=== PATIENT | female | born 1975 | race Caucasian/White ===

== ENCOUNTER 2017-12-10 21:17 | Emergency (ER) | payer OTHER ==
[~2017-12-10] VITALS: Ht 167.6 cm; Wt 75.0 kg
[~2017-12-10 21:17] MED LIST: NOHOMEMEDS
[2017-12-10] MEDS ORDERED: PREDNISONE20 MG PO (22:08)
[2017-12-10] MEDS ORDERED: BENADRYL50 MG PO (22:08)
[2017-12-10 22:38] VITALS: BP 124/90
== END 2017-12-10 22:40 | disposition home or self-care (01) ==
LOC: EME 21:17
DX: T63.441A Toxic effect of venom of bees, accidental (unintentional), initial encounter (principal); F17.200 Nicotine dependence, unspecified, uncomplicated
CPT/HCPCS: 99281; 99283; J7512